=== PATIENT | male | born 1960 | race Two or more races ===

== ENCOUNTER 2025-08-13 08:09 | Day surgery (SDC) | payer BC ==
[~2025-08-13] VITALS: Ht 172.7 cm; Wt 134.7 kg
[~2025-08-13 08:09] MED LIST: ALBU108A5 IN; AMLO1TAB22 PO; METO-535 PO
[2025-08-13] MEDS ORDERED: VERAPAMIL 2.5MG/ML INJ 2ML VIAL IV ONE (10:21)
[2025-08-13] MEDS ORDERED: fentaNYL CITRATE 100 MCG/2 ML VL ONE (10:21)
[2025-08-13] MEDS ORDERED: HEPARIN SODIUM (PORCINE) 5000 UNITS/ML 1ML VIAL ONE (10:21)
[2025-08-13] MEDS ORDERED: MIDAZOLAM HCL 2MG/2ML 2ml VIAL (1mg/ml) ONE (10:22)
[2025-08-13] MEDS ORDERED: IODIXANOL 320MG/ML 100ML BTL IV ONE (10:22)
[2025-08-13] MEDS ORDERED: LIDOCAINE 2%HCL (LOCAL ANESTH.) INJ 20ML MDV ONE (10:22)
--- NOTE | 2025-08-13 11:00 | DVHOP2 ---
Operative Report Operative Report CARDIAC STATIONARY BOILER [employer]REMAN PROCEDURE REPORT [place], [place] Date of Service: 08/13/25 Contact Center Team Lead: Yamilet Krueger MD PROCEDURES PERFORMED: Coronary angiogram, left heart catheterization, conscious sedation administration and supervision, less than 15 minutes; fluoroscopy use and interpretation. PREOPERATIVE DIAGNOSES: ACHF eval with nyha class III hf, r/o cad POSTOP DIAGNOSIS: 1v cad DESCRIPTION OF PROCEDURE: The patient or appropriate family signed informed consent understanding the risks, benefits and alternatives of the procedure, they wished to proceed. The patient was brought to the cardiac geotechnical laboratory technician in [place] state. The patient was prepped in a sterile fashion. Sedation was used per cardiac cath protocol. I administered 2 mL of 2% lidocaine to the right wrist. With an antegrade front wall puncture. I cannulated the right radial artery and placed a 6-[place] Glidesheath slender. Next, an intra-arterial spasmolytic was administered. Next, a - 6[place] catheter a were used for coronary angiogram and LVEDP measurement and pressure pullback. At the completion of procedure, all guides and wires were removed, and there were no immediate complications. FINDINGS: RCA: Moderate vessel off the right sinus of Valsalva, there is no severe flow limiting stenosis. LEFT MAIN: large size left main, it bifurcates into LAD and circumflex. no severe stenosis. CIRCUMFLEX: Moderate caliber vessel coming off the left main with no flow limiting stenosis. LAD: LAD is a moderate caliber vessel coming of the left main. prox lAD is patent. D1 has an ostial 90% stenosis, mid LAD at bifurcation has a 50% stenosis CONCLUSIONS: 1. 1v branch cad PLAN: Aggressive risk factor modification and medical management for the patient. options include medical management for now, asa, statin, BB, HF meds if not suitable consider PCI to Diag +- LAD at tertiary care center YAMILET KRUEGER MD Aug 13, 2025 11:00
[2025-08-13 11:05] VITALS: BP 112/74; PULSE 77; RESP 16; O2SAT 95
[2025-08-13 11:20] VITALS: BP 115/83; PULSE 79; RESP 14
[2025-08-13 11:35] VITALS: BP 118/82; PULSE 78; RESP 13
[2025-08-13 11:50] VITALS: BP 114/81; PULSE 79; RESP 12
[2025-08-13 12:50] VITALS: BP 117/79; PULSE 86; RESP 15
== END 2025-08-13 14:02 | disposition home or self-care (01) ==
LOC: CATH 08:09
PROVIDERS: ATTEND Internal Medicine
DX: I11.0 Hypertensive heart disease with heart failure (principal); I50.23 Acute on chronic systolic (congestive) heart failure; I25.10 Atherosclerotic heart disease of native coronary artery without angina pectoris; E11.9 Type 2 diabetes mellitus without complications; Z79.82 Long term (current) use of aspirin; Z79.899 Other long term (current) drug therapy; Z87.891 Personal history of nicotine dependence
CPT/HCPCS: 93454; C1769; C1894; J1644; J2250; J3010; Q9967; 93458; 99152